=== PATIENT | male | born 1985 | race Caucasian/White ===

== ENCOUNTER 2024-11-21 20:49 | Emergency (ER) | payer OTHER, SELFPAY ==
[2024-11-21 20:54] LABS: Glucose - Point of Care 122 mg/dl (70-99)
[2024-11-21 20:58] VITALS: BP 127/91
--- NOTE | 2024-11-21 20:58 | ED.GENMED ---
History of Present Illness
General
Chief Complaint: Seizure
Source: patient and ambulance crew
Time Seen by Provider: 11/21/24 20:56
History of Present Illness
History of Present Illness:
39-year-old male presents to the emergency room from [facility] where he had seizure-like episodes. Patient had presented to the medical unit at the snf for feeling short of breath. Patient tells me here that he has a significant
history of asthma and COPD. He was telling the staff that he needed his inhalers. It is perception they were not giving him his medications quickly enough and next thing you know he collapses to the ground. Patient also endorses a seizure history
though he cannot tell me what medication he takes for seizures. Currently the patient is sleepy but answering questions slowly. He denies shortness of breath at this time.
Phy Exam
Physical Exam
Physical Exam:
General: Awake, Alert, Oriented X3. Sleepy but answering questions
Vitals: unremarkable
Head: Atraumatic
Eyes: Pupils equal, EOMI
Throat: Airway intact, no exudates
Neck: Trachea midline
Lungs: Clear and equal b/l
Heart: Regular rate, no murmurs
Abd: Soft, Nontender, No pulsatile mass
Neuro: Nonfocal
Skin: Warm, dry, no rash
Extremities: pulses equal b/l, no edema
Course
Orders/Labs/Results
Orders:
Orders
11/21/24 20:52
EKG [Electrocardiogram (*1)] Urgent
Reason for Study: Chest Pain
11/21/24 20:54
EKG- Treatment ONCE
11/21/24 20:55
CXR2 [CR Chest - 2 Views ] Urgent
Comment:
Reason For Exam: short of breath
11/21/24 20:57
Complete Blood Count/With Diff Urgent
Comprehensive Metabolic Panel Urgent
11/21/24 21:02
CT Head W/o Iv Contrast Urgent
Comment:
Reason For Exam: fall, head injury
11/21/24 21:31
NT-proBNP Urgent
Comment: ADD ON
Troponin I Urgent
11/21/24 22:49
Add On- LAB Urgent
Tests Added?: bnp
Abnormal Lab Results
11/21/24 11/21/24
20:53 20:57
Absolute Lymphs (auto) 3.6 H 10^3/uL
(1.2-3.4)
Absolute Monos (auto) 0.8 H 10^3/uL
(0.1-0.6)
Monocytes % 9.6 H %
(1.7-9.3)
Glucose 133 H mg/dl
(70-99)
POC Glucose 122 H mg/dl
(70-99)
11/21/24 20:57
11/21/24 20:57
Vital Signs
Initial and Last Documented VS:
Initial Vital Signs
Temp Pulse Resp BP Pulse Ox
97.8 F 85 20 127/91 96
11/21/24 20:58 11/21/24 20:58 11/21/24 20:58 11/21/24 20:58 11/21/24 20:58
Last Documented Vital Signs
Temp Pulse Resp BP Pulse Ox
97.8 F 62 16 116/83 98
11/21/24 20:58 11/21/24 23:30 11/21/24 21:30 11/21/24 23:00 11/21/24 23:30
MDM/Problems Addressed
MDM/Problems Addressed:
Patient presents to the emergency room after having some sort of a band at present. He was feeling claustrophobic and short of breath and wanted his inhaler. Did not feel like he got up quickly and then had 'seizure'. Patient has been awake and
conversant though somewhat sleepy here in the emergency room. No further events here. Workup here is essentially unremarkable. There is some question of perhaps heart failure on his chest x-ray which I think is more likely related to a poor
inspiratory effort. His BNP is normal. No wheezing at this time to suggest COPD exacerbation. Patient stable for discharge back to his sn[facility]. I do not believe the events were true seizure. I believe they are likely more a anxiety or emotional
response such as pseudoseizure.
*Pulse Oximetry
SaO2: 99
Oxygen Mode of Delivery: Room air
Patient hypoxic: no
*EKG
Interpreted by ED Provider?: Yes
Heart Rate: 82
Rate: normal
Rhythm: sinus
[place]: normal axis
Interval: normal interval
QRS Pattern: normal QRS
Ischemia: no ischemia
*Line Service Technician Interpretation
Rate: normal
Interpretation: normal
Heart Rate: 82
Rhythm: sinus
*Critical Care Note
Total Time (30-74mins, 75-104mins- exclusive of procedures): Not Applicable
ED Attending Note
-
Portions of this chart may have been created with voice recognition software.� Occasional wrong word or��sound alike� substitutions may have occurred due to the inherent limitations of voice recognition software.
Discharge Plan
Departure
Patient Disposition: Group Home
Date of Disposition: 11/21/24
Time of Disposition: 23:56
Condition: Good
Discharge Problem:
Anxiety
Prescriptions:
No Action
quetiapine 25 mg Tablet
25 mg PO DAILY
albuterol sulfate 2.5 mg /3 mL (0.083 %) Solution For Nebulization
2.5 mg INHALATION BID PRN (Reason: short of breath/wheezing)
metoprolol tartrate 100 mg Tablet
100 mg PO BID
clonazepam 0.5 mg Tablet
0.5 mg PO HS
diphenhydramine HCl 25 mg Tablet
25 mg PO BID
quetiapine 50 mg Tablet
50 mg PO HS
Referrals:
[facility] [Family Provider, General]
Interventions
Interventions:
*Risk Screen - Suicide Last Done: 11/21/24 21:09
*General Assessment Last Done: 11/21/24 21:09
*Neglect/Abuse Screening Last Done: 11/21/24 21:09
ED- Cardiac Assessment Last Done: 11/21/24 21:15
ED- Neurological Assessment Last Done: 11/21/24 21:15
ED- Pulmonary Assessment Last Done: 11/21/24 21:15
Discharge Date and Time
Print Language: ROMANSH
[2024-11-21 21:03] VITALS: BMI 36.9
[2024-11-21 21:04] LABS: % Basophils 0.7 % (0-2); % Eosinophils 5.8 % (0-6); % Immature Granulocytes 0.1 % (0-0.5); % Lymphocytes 41.4 % (20.5-51.1); % Monocytes 9.6 % (1.7-9.3); % Neutrophils 42.4 % (42.2-75.2); Absolute Basophils 0.1 10^3/uL (0-0.2); Absolute Eosinophils 0.5 10^3/uL (0-0.7); Absolute Lymphocytes 3.6 10^3/uL (1.2-3.4); Absolute Monocytes 0.8 10^3/uL (0.1-0.6); Absolute Neutrophils 3.7 10^3/uL (1.4-6.5); Hematocrit 46.4 % (39.0-52.0); Hemoglobin 15.8 g/dL (13.0-18.0); Mean Corp Hgb Conc. 34.1 g/dL (33.0-37.0); Mean Corpuscular Hgb 29.6 pg (27.0-31.0); Mean Corpuscular Volume 87.1 fL (80.0-94.0); Mean Platelet Volume 9.9 fL (7.4-10.4); Nucleated Red Blood Cells % 0 % (-); Platelet Count 243 10^3/uL (130-400); Red Blood Cell Count 5.33 10^6/uL (4.70-6.10); White Blood Cell Count 8.8 10^3/uL (4.8-10.8)
[2024-11-21 21:07] VITALS: BP 121/81
[2024-11-21 21:46] LABS: ALT (SGPT) 23 U/L (0-50); AST (SGOT) 25 U/L (17-59); Albumin 4.4 g/dl (3.5-5.0); Alkaline Phosphatase 55 U/L (38-126); Blood Urea Nitrogen 10 mg/dl (9-20); Calcium 9.3 mg/dl (8.4-10.2); Carbon Dioxide 22 mmol/L (22-30); Chloride 106 mmol/L (98-107); Estimated Creatinine Clearance > 125 ml/min; Glucose 133 mg/dl (70-99); Potassium 3.9 mmol/L (3.5-5.1); Sodium 139 mmol/L (135-145); Total Bilirubin 0.5 mg/dl (0.2-1.3); Total Protein 7.2 g/dl (6.3-8.2); eGFR > 60.00
[2024-11-21 22:15] VITALS: BP 115/80
[2024-11-21 22:16] LABS: Troponin I < 0.012 ng/ml
[2024-11-21 23:00] VITALS: BP 116/83
[2024-11-21 23:50] LABS: NT-proBNP 41.6 pg/ml
[2024-11-22] VITALS: BP 105/77
== END 2024-11-22 00:20 ==
LOC: EMR 20:49
PROVIDERS: EMERGENCY PHYSICIAN Emergency Medicine
DX: R55 Syncope and collapse (principal); R56.9 Unspecified convulsions; R06.02 Shortness of breath; F41.9 Anxiety disorder, unspecified; J44.89 Other specified chronic obstructive pulmonary disease
CPT/HCPCS: 99285; 70450; 71046; 80053; 82962; 83880; 84484; 85025; 93005